=== PATIENT | female | born 1960 | race Caucasian/White ===

== ENCOUNTER 2021-04-29 17:05 | Emergency (ER) | payer MEDICAID ==
[~2021-04-29] VITALS: Ht 162.6 cm; Wt 98.4 kg
[2021-04-29 21:10] VITALS: BP 140/80
== END 2021-04-29 21:15 | disposition home or self-care (01) ==
LOC: ER 17:05
DX: S06.0X0A Concussion without loss of consciousness, initial encounter (principal); I10 Essential (primary) hypertension; Z88.2 Allergy status to sulfonamides; W01.0XXA Fall on same level from slipping, tripping and stumbling without subsequent striking against object, initial encounter; Y93.89 Activity, other specified; Y92.89 Other specified places as the place of occurrence of the external cause; Y99.8 Other external cause status
CPT/HCPCS: 70450

== ENCOUNTER 2024-03-06 18:36 | Inpatient (IN) | payer MEDICAID ==
[~2024-03-06] VITALS: Ht 162.6 cm; Wt 113.0 kg
[2024-03-06] MEDS: TAMSULOSIN HYDROCHLORIDE 0.4 MG CAP PO ONE (19:18)
[2024-03-06] MEDS: KETOROLAC TROMETH 30 MG/ML 1ML VIAL IV ONE (19:18)
[2024-03-06] MEDS: ONDANSETRON HCL 4 MG/2 ML VIAL IV ONE ×2 (19:18→22:59)
[2024-03-06 19:28] LABS: Basophils # (auto) 0 10 ^3/uL (0-0.2); Basophils % (auto) 0.5 % (0.0-2.0); Eosinophils # (auto) 0.1 10 ^3/uL (0-0.8); Eosinophils % (auto) 2.4 % (0.0-7.0); Hematocrit 39.2 % (36.0-46.0); Hemoglobin 13.2 g/dL (12.2-16.2); Lymphocytes # (auto) 2.2 10 ^3/uL (0.4-5.4); Mean Corpuscular Hgb Conc. 33.8 g/dL (32.0-36.0); Mean Corpuscular Volume 97.5 fL (80.0-100.0); Monocytes # (auto) 0.6 10 ^3/uL (0-1.3); Monocytes % (auto) 8.9 % (0.0-12.0); Neutrophils # (auto) 3.2 10 ^3/uL (1.6-8.6); Neutrophils % (auto) 52.2 % (37.0-80.0); Nucleated Red Blood Cells % 0.4 %; Platelet Count (auto) 334 10^3/uL (140-450); Red Blood Cells 4.02 10^6/uL (4.0-5.20); Red Cell Distribution Width 12.7 % (11.8-14.3); White Blood Cell 6.2 10^3/uL (4.4-10.8)
[2024-03-06 19:35] LABS: Alanine Aminotransferase 29 U/L (7-40); Albumin 4.5 g/dL (3.2-4.8); Alkaline Phosphatase 108 U/L (46-116); Anion Gap 8 (5-15); Aspartate Aminotransferase 46 U/L (13-40); BUN/Creatinine Ratio 8.4 (10.0-20.0); Blood Urea Nitrogen 9 mg/dL (9-23); Calcium 9.7 mg/dL (8.7-10.4); Carbon Dioxide 25 mmol/L (20-31); Chloride 92 mmol/L (98-107); Glucose 84 mg/dL (74-106); Potassium 3.8 mmol/L (3.5-5.1); Sodium 125 mmol/L (136-145)
[2024-03-06 19:36] LABS: Bilirubin, Total 0.3 mg/dL (0.2-1.0)
[2024-03-06] MEDS: SODIUM CHLORIDE 0.9% 1,000 ML IV ONE (19:43)
[2024-03-06] MEDS: MORPHINE SULFATE 4 MG/ML SYR/VIAL IV ONE (22:59)
[2024-03-06] MEDS ORDERED: MORPHINE SULFATE INJ 2 MG/ml SYRG IV PRN (23:15)
[2024-03-06] MEDS ORDERED: NITROGLYCERIN 0.4 MG SL TAB SL PRN (23:15)
[2024-03-06] MEDS ORDERED: DOCUSATE SOD 100 MG CAP PO PRN (23:15)
[2024-03-06] MEDS ORDERED: ONDANSETRON HCL 4 MG/2 ML VIAL IV PRN (23:15)
[2024-03-07] VITALS (11 sets, daily range): BP systolic 118–126; BP diastolic 40–50; PULSE 58–72; RESP 12–18; TEMP 97.9–98.4; O2SAT 93–100
[2024-03-07] MEDS: SODIUM CHLORIDE 0.9% 1,000 ML IV SCH (01:08)
[2024-03-07] MEDS: MORPHINE SULFATE INJ 2 MG/ml SYRG IV PRN (01:09)
[2024-03-07 03:50] LABS: Urine Bacteria None Seen /hpf (None Seen)
[2024-03-07 04:38] LABS: Basophils # (auto) 0 10 ^3/uL (0-0.2); Basophils % (auto) 0.2 % (0.0-2.0); Eosinophils # (auto) 0.1 10 ^3/uL (0-0.8); Eosinophils % (auto) 1.4 % (0.0-7.0); Hematocrit 34.2 % (36.0-46.0); Hemoglobin 12.2 g/dL (12.2-16.2); Lymphocytes # (auto) 1.7 10 ^3/uL (0.4-5.4); Lymphocytes % (auto) 21.1 % (10.0-50.0); Mean Corpuscular Hemoglobin 33.4 pg (28.0-32.0); Mean Corpuscular Hgb Conc. 35.7 g/dL (32.0-36.0); Mean Corpuscular Volume 93.6 fL (80.0-100.0); Monocytes # (auto) 0.7 10 ^3/uL (0-1.3); Monocytes % (auto) 8.9 % (0.0-12.0); Neutrophils # (auto) 5.4 10 ^3/uL (1.6-8.6); Neutrophils % (auto) 68.4 % (37.0-80.0); Platelet Count (auto) 253 10^3/uL (140-450); Red Blood Cells 3.66 10^6/uL (4.0-5.20); Red Cell Distribution Width 12.6 % (11.8-14.3); White Blood Cell 7.9 10^3/uL (4.4-10.8)
[2024-03-07 04:53] LABS: Urine Blood Negative /uL (Negative); Urine Clarity Turbid (Clear); Urine Color Yellow (Yellow); Urine Mucus FEW (None Seen); Urine Protein, UAD TRACE (Negative); Urine Specific Gravity 1.019 (1.001-1.035); Urine Urobilinogen Normal (Negative); Urine WBC 11 /hpf (0 - 5); Urine pH 5.5 (5.0-9.0)
[2024-03-07 04:55] LABS: Chloride 92 mmol/L (98-107); Potassium 3.4 mmol/L (3.5-5.1); Sodium 127 mmol/L (136-145)
[2024-03-07 04:56] LABS: Anion Gap 9 (5-15); Carbon Dioxide 26 mmol/L (20-31)
[2024-03-07 04:57] LABS: Calcium 9.2 mg/dL (8.7-10.4)
[2024-03-07 05:01] LABS: Glucose 96 mg/dL (74-106)
[2024-03-07 05:02] LABS: Blood Urea Nitrogen 11 mg/dL (9-23)
[2024-03-07] MEDS: POTASSIUM CHL 20 Meq TABLET PO ONE (06:44)
[2024-03-07] MEDS ORDERED: DULO20CA PO (07:04)
[2024-03-07] MEDS ORDERED: ATEN25TA PO (07:04)
[2024-03-07] MEDS ORDERED: UPAD15TA PO (07:04)
[2024-03-07] MEDS ORDERED: GABA-339 PO (07:04)
[2024-03-07] MEDS ORDERED: TRAZ-181 PO (07:04)
[2024-03-07] MEDS ORDERED: LURA80TA2 PO (07:04)
[2024-03-07] MEDS ORDERED: OXCA300T4 PO (07:04)
[2024-03-07] MEDS ORDERED: ATEN50TA PO (07:04)
[2024-03-07 09:35] LABS: Magnesium 1.5 mg/dL (1.6-2.6)
[2024-03-07 09:37] LABS: Phosphorus 3.3 mg/dL (2.4-5.1)
[2024-03-07] MEDS: TAMSULOSIN HYDROCHLORIDE 0.4 MG CAP PO SCH (11:31)
[2024-03-07] MEDS: SOD CHL 0.9%/ KCL 20MEQ 1,000 ML IV ONE (11:51)
[2024-03-07] MEDS: MAGNESIUM SULFATE 1GM/100ML 100 ML IV SCH (11:52)
[2024-03-07 13:37] LABS: Protein, Urine 24.8 mg/dL (1-14); Protein, Urine 26.3 mg/dL (1-14)
[2024-03-07 13:39] LABS: Creatinine, Urine 143.32 mg/dL (30.0-125.0)
[2024-03-07 13:40] LABS: Creatinine, Urine 146.78 mg/dL (30.0-125.0); Urine Protein/Creatinine Ratio 0.18
[2024-03-08] VITALS (13 sets, daily range): BP systolic 99–161; BP diastolic 53–77; PULSE 75–90; RESP 12–20; TEMP 97.3–98.5; O2SAT 94–99
[2024-03-08 07:25] LABS: INR 1.08 (0.9-1.15); Partial Thromboplastin Time 25.6 SEC (24.5-34.5); Prothrombin Time 11.4 sec (9.3-11.8)
[2024-03-08 08:03] LABS: Basophils # (auto) 0 10 ^3/uL (0-0.2); Basophils % (auto) 0.1 % (0.0-2.0); Eosinophils # (auto) 0 10 ^3/uL (0-0.8); Eosinophils % (auto) 0.5 % (0.0-7.0); Hematocrit 34.2 % (36.0-46.0); Hemoglobin 11.8 g/dL (12.2-16.2); Lymphocytes # (auto) 0.4 10 ^3/uL (0.4-5.4); Lymphocytes % (auto) 8.5 % (10.0-50.0); Mean Corpuscular Hemoglobin 32.8 pg (28.0-32.0); Mean Corpuscular Hgb Conc. 34.6 g/dL (32.0-36.0); Mean Corpuscular Volume 94.7 fL (80.0-100.0); Monocytes # (auto) 0.5 10 ^3/uL (0-1.3); Monocytes % (auto) 10.3 % (0.0-12.0); Neutrophils # (auto) 4.2 10 ^3/uL (1.6-8.6); Neutrophils % (auto) 80.6 % (37.0-80.0); Platelet Count (auto) 227 10^3/uL (140-450); Red Blood Cells 3.61 10^6/uL (4.0-5.20); Red Cell Distribution Width 12.7 % (11.8-14.3); White Blood Cell 5.2 10^3/uL (4.4-10.8)
[2024-03-08 08:09] LABS: Calcium 9.3 mg/dL (8.7-10.4); Chloride 103 mmol/L (98-107); Potassium 4.6 mmol/L (3.5-5.1); Sodium 136 mmol/L (136-145)
[2024-03-08 08:10] LABS: Anion Gap 5 (5-15); Carbon Dioxide 28 mmol/L (20-31)
[2024-03-08 08:15] LABS: BUN/Creatinine Ratio 6.9 (10.0-20.0); Blood Urea Nitrogen 7 mg/dL (9-23); Glucose 114 mg/dL (74-106)
[2024-03-08] MEDS: IODIXANOL 320MG/ML 100ML BTL IV ONE (12:23)
[2024-03-08] MEDS: LIDOCAINE 2%HCL (LOCAL ANESTH.) INJ 20ML MDV ONE (12:23)
[2024-03-08] MEDS: fentaNYL CITRATE 100 MCG/2 ML VL ONE (12:23)
[2024-03-08] MEDS: MIDAZOLAM HCL 2MG/2ML 2ml VIAL (1mg/ml) ONE (12:23)
[2024-03-08] MEDS: HYDROmorphone HCL 2 MG/ML VL/or syr ONE (13:48)
[2024-03-08] MEDS: HYDROcodone-ACET 5/325MG TAB PO PRN (20:22)
[2024-03-09] VITALS (8 sets, daily range): BP systolic 95–152; BP diastolic 50–74; PULSE 77–88; RESP 16–24; TEMP 97.9–98.6; O2SAT 96–100
[2024-03-09 07:07] LABS: Chloride 102 mmol/L (98-107); Sodium 137 mmol/L (136-145)
[2024-03-09 07:08] LABS: Anion Gap 6 (5-15); Calcium 9.6 mg/dL (8.7-10.4); Carbon Dioxide 29 mmol/L (20-31)
[2024-03-09 07:13] LABS: BUN/Creatinine Ratio 9.4 (10.0-20.0); Blood Urea Nitrogen 9 mg/dL (9-23); Glucose 119 mg/dL (74-106)
[2024-03-09 07:19] LABS: Basophils # (auto) 0 10 ^3/uL (0-0.2); Basophils % (auto) 0.2 % (0.0-2.0); Eosinophils # (auto) 0.1 10 ^3/uL (0-0.8); Hematocrit 33.9 % (36.0-46.0); Hemoglobin 11.9 g/dL (12.2-16.2); Lymphocytes # (auto) 0.5 10 ^3/uL (0.4-5.4); Lymphocytes % (auto) 8.5 % (10.0-50.0); Mean Corpuscular Hemoglobin 33.5 pg (28.0-32.0); Mean Corpuscular Hgb Conc. 35.2 g/dL (32.0-36.0); Mean Corpuscular Volume 95.3 fL (80.0-100.0); Monocytes # (auto) 0.7 10 ^3/uL (0-1.3); Monocytes % (auto) 11.3 % (0.0-12.0); Neutrophils # (auto) 4.8 10 ^3/uL (1.6-8.6); Platelet Count (auto) 233 10^3/uL (140-450); Red Blood Cells 3.56 10^6/uL (4.0-5.20); Red Cell Distribution Width 12.9 % (11.8-14.3)
[2024-03-09] MEDS: hydrALAZINE HCL 20 MG/ML VL IV PRN (10:01)
[2024-03-09] MEDS: OXcarbazepine 300 MG TAB PO SCH (13:06)
[2024-03-09] MEDS: GABAPENTIN 300 MG CAP PO SCH (13:07)
[2024-03-09] MEDS: ACETAMINOPHEN 325 MG TAB PO PRN (13:07)
[2024-03-09] MEDS ORDERED: NITR-52 PO (15:00)
[2024-03-09] MEDS ORDERED: TAMS-35 PO (15:00)
[2024-03-09] MEDS: LOSARTAN POTASSIUM 50 MG TAB PO ONE (17:55)
[2024-03-09] MEDS ORDERED: DULoxetine HCL 30 MG CAP PO SCH (22:00)
[2024-03-10 05:00] VITALS: BP 134/56; PULSE 86; RESP 19; TEMP 98.3; O2SAT 95
[2024-03-10 06:42] LABS: Anion Gap 6 (5-15); Carbon Dioxide 29 mmol/L (20-31); Chloride 101 mmol/L (98-107); Sodium 136 mmol/L (136-145)
[2024-03-10 06:43] LABS: Calcium 9.7 mg/dL (8.7-10.4)
[2024-03-10 06:48] LABS: BUN/Creatinine Ratio 8.4 (10.0-20.0); Blood Urea Nitrogen 10 mg/dL (9-23); Glucose 118 mg/dL (74-106)
[2024-03-10 06:50] LABS: Basophils # (auto) 0 10 ^3/uL (0-0.2); Basophils % (auto) 0.1 % (0.0-2.0); Eosinophils # (auto) 0.1 10 ^3/uL (0-0.8); Hematocrit 34.5 % (36.0-46.0); Lymphocytes # (auto) 0.6 10 ^3/uL (0.4-5.4); Lymphocytes % (auto) 8.7 % (10.0-50.0); Mean Corpuscular Hemoglobin 33.3 pg (28.0-32.0); Mean Corpuscular Hgb Conc. 34.7 g/dL (32.0-36.0); Mean Corpuscular Volume 95.9 fL (80.0-100.0); Monocytes # (auto) 0.6 10 ^3/uL (0-1.3); Monocytes % (auto) 9.3 % (0.0-12.0); Neutrophils # (auto) 5.4 10 ^3/uL (1.6-8.6); Neutrophils % (auto) 80.9 % (37.0-80.0); Platelet Count (auto) 245 10^3/uL (140-450); Red Blood Cells 3.59 10^6/uL (4.0-5.20); Red Cell Distribution Width 13.2 % (11.8-14.3); White Blood Cell 6.7 10^3/uL (4.4-10.8)
[2024-03-10 08:00] VITALS: PULSE 83
[2024-03-10 09:00] VITALS: BP 143/56; PULSE 86; RESP 15; TEMP 98.3; O2SAT 96
[2024-03-10] MEDS ORDERED: LOSARTAN POTASSIUM 50 MG TAB PO SCH (10:00)
[2024-03-10 13:00] VITALS: BP 142/66; PULSE 74; RESP 15; TEMP 97.9; O2SAT 99
== END 2024-03-10 16:00 | disposition home or self-care (01) | DRG 465 ==
LOC: ER 18:36 → OVERFLOW 23:21 → TELE 03-07 00:18 → TELE-EAST 03-07 05:32
PROVIDERS: ADMIT Nurse Practitioner Family; ATTEND Nurse Practitioner Family
PROC: 0T9030Z Drainage of Right Kidney with Drainage Device, Percutaneous Approach (ICD-10-PCS; principal; 2024-03-08)
DX: N13.2 Hydronephrosis with renal and ureteral calculous obstruction (principal); E87.1 Hypo-osmolality and hyponatremia; I10 Essential (primary) hypertension; E87.6 Hypokalemia; E83.42 Hypomagnesemia; F31.9 Bipolar disorder, unspecified; Z88.2 Allergy status to sulfonamides; Z82.49 Family history of ischemic heart disease and other diseases of the circulatory system
CPT/HCPCS: 36415; 50432; 74018; 74176; 74425; 76775; 76942; 80048; 80053; 81001; 82570; 83735; 83930; 83935; 84100; 84156; 84300; 84439; 84443; 84550; 85025; 85610; 85730; 86850; 86900; 86901; 96361; 96374; 96375; 96376; 97163; 99152; G0378; J1885; J2250; J2405; Q9967

== ENCOUNTER 2024-03-16 17:40 | Emergency (ER) | payer MEDICAID ==
[~2024-03-16 17:40] MED LIST: ATEN25TA PO; ATEN50TA PO; DULO20CA PO; GABA-339 PO; LURA80TA2 PO; NITR-52 PO; OXCA300T4 PO; TAMS-35 PO; TRAZ-181 PO; UPAD15TA PO
[2024-03-16 18:38] LABS: Basophils # (auto) 0 10 ^3/uL (0-0.2); Basophils % (auto) 0.5 % (0.0-2.0); Eosinophils # (auto) 0.1 10 ^3/uL (0-0.8); Eosinophils % (auto) 3.1 % (0.0-7.0); Hematocrit 37.2 % (36.0-46.0); Hemoglobin 12.9 g/dL (12.2-16.2); Lymphocytes # (auto) 1.7 10 ^3/uL (0.4-5.4); Lymphocytes % (auto) 38.5 % (10.0-50.0); Mean Corpuscular Hemoglobin 32.8 pg (28.0-32.0); Mean Corpuscular Hgb Conc. 34.8 g/dL (32.0-36.0); Mean Corpuscular Volume 94.3 fL (80.0-100.0); Monocytes # (auto) 0.5 10 ^3/uL (0-1.3); Monocytes % (auto) 11.7 % (0.0-12.0); Neutrophils % (auto) 46.2 % (37.0-80.0); Nucleated Red Blood Cells % 0.1 %; Platelet Count (auto) 260 10^3/uL (140-450); Red Blood Cells 3.94 10^6/uL (4.0-5.20); Red Cell Distribution Width 12.8 % (11.8-14.3); White Blood Cell 4.4 10^3/uL (4.4-10.8)
[2024-03-16 18:46] LABS: Chloride 102 mmol/L (98-107); Potassium 3.7 mmol/L (3.5-5.1); Sodium 135 mmol/L (136-145)
[2024-03-16 18:47] LABS: Anion Gap 5 (5-15); Calcium 9.5 mg/dL (8.7-10.4); Carbon Dioxide 28 mmol/L (20-31)
[2024-03-16 18:52] LABS: BUN/Creatinine Ratio 7.6 (10.0-20.0); Blood Urea Nitrogen 8 mg/dL (9-23); Glucose 103 mg/dL (74-106)
[2024-03-16 20:15] VITALS: PULSE 62; RESP 16; TEMP 98.5; O2SAT 100
[2024-03-16] MEDS: ONDANSETRON HCL 4 MG/2 ML VIAL IV ONE (20:44)
[2024-03-16] MEDS: MORPHINE SULFATE 4 MG/ML SYR/VIAL IV ONE (20:44)
[2024-03-16] MEDS: SODIUM CHLORIDE 0.9% 1,000 ML IV ONE (20:44)
[2024-03-16] MEDS: IOHEXOL 300 MG/ML 100ML BOTTLE IJ ONE (21:13)
[2024-03-16 22:00] VITALS: BP 145/47; PULSE 73; RESP 12; O2SAT 100
[2024-03-16] MEDS: HYDROcodone-ACET 10/325MG TAB PO ONE (22:43)
== END 2024-03-16 22:53 | disposition home or self-care (01) ==
LOC: ER 17:40
DX: R10.9 Unspecified abdominal pain (principal); I10 Essential (primary) hypertension; Z93.6 Other artificial openings of urinary tract status; Z79.899 Other long term (current) drug therapy
CPT/HCPCS: 36415; 74177; 80048; 85025; 96361; 96374; 96375; 99285; J2270; J2405; J7030; Q9967

== ENCOUNTER 2024-03-17 08:27 | Inpatient (IN) | payer MEDICAID ==
[~2024-03-17] VITALS: Ht 161.3 cm; Wt 112.0 kg
[2024-03-17 09:56] LABS: Basophils # (auto) 0 10 ^3/uL (0-0.2); Basophils % (auto) 0.5 % (0.0-2.0); Eosinophils # (auto) 0.1 10 ^3/uL (0-0.8); Eosinophils % (auto) 1.8 % (0.0-7.0); Hematocrit 37.5 % (36.0-46.0); Hemoglobin 12.9 g/dL (12.2-16.2); Lymphocytes # (auto) 0.7 10 ^3/uL (0.4-5.4); Lymphocytes % (auto) 9.5 % (10.0-50.0); Mean Corpuscular Hemoglobin 32.8 pg (28.0-32.0); Mean Corpuscular Hgb Conc. 34.4 g/dL (32.0-36.0); Mean Corpuscular Volume 95.3 fL (80.0-100.0); Monocytes # (auto) 0.6 10 ^3/uL (0-1.3); Monocytes % (auto) 8.2 % (0.0-12.0); Neutrophils # (auto) 5.5 10 ^3/uL (1.6-8.6); Platelet Count (auto) 263 10^3/uL (140-450); Red Blood Cells 3.93 10^6/uL (4.0-5.20); Red Cell Distribution Width 12.8 % (11.8-14.3); White Blood Cell 6.9 10^3/uL (4.4-10.8)
[2024-03-17 09:57] LABS: Urine Bacteria None Seen /hpf (None Seen)
[2024-03-17 10:00] LABS: Chloride 103 mmol/L (98-107); Sodium 139 mmol/L (136-145)
[2024-03-17 10:01] LABS: Anion Gap 5 (5-15); Calcium 9.6 mg/dL (8.7-10.4); Carbon Dioxide 31 mmol/L (20-31)
[2024-03-17 10:05] LABS: Urine Blood Negative /uL (Negative); Urine Clarity Clear (Clear); Urine Color Light-Yellow (Yellow); Urine Protein, UAD Negative (Negative); Urine Specific Gravity 1.016 (1.001-1.035); Urine Urobilinogen Normal (Negative); Urine WBC 2 /hpf (0 - 5)
[2024-03-17 10:06] LABS: BUN/Creatinine Ratio 8.3 (10.0-20.0); Blood Urea Nitrogen 9 mg/dL (9-23); Glucose 99 mg/dL (74-106)
[2024-03-17] MEDS: TAMSULOSIN HYDROCHLORIDE 0.4 MG CAP PO ONE (10:15)
[2024-03-17] MEDS: FUROSEMIDE 40 MG/4 ML VIAL IV ONE (10:15)
[2024-03-17] MEDS: KETOROLAC TROMETH 30 MG/ML 1ML VIAL IV ONE (11:49)
[2024-03-17] MEDS: HYDROmorphone HCL 2 MG/ML VL/or syr IV ONE (13:31)
[2024-03-17] MEDS ORDERED: KETOROLAC TROMETH 30 MG/ML 1ML VIAL IV PRN (16:30)
[2024-03-17] MEDS ORDERED: ONDANSETRON HCL 4 MG/2 ML VIAL IV PRN (16:30)
[2024-03-17] MEDS ORDERED: fentaNYL CITRATE 100 MCG/2 ML VL ONE (16:39)
[2024-03-17] MEDS: SUCCINYLCHOLINE CHLORIDE 20 MG/ML 10ML VIAL IV ONE (16:40)
[2024-03-17] MEDS ORDERED: PROPOFOL 10 MG/ML 20 ML IV ONE (16:41)
[2024-03-17] MEDS ORDERED: MORPHINE SULFATE INJ 2 MG/ml SYRG IV PRN (16:45)
[2024-03-17] MEDS ORDERED: NITROGLYCERIN 0.4 MG SL TAB SL PRN (16:45)
[2024-03-17] MEDS ORDERED: ONDANSETRON HCL 4 MG/2 ML VIAL ONE (17:03)
[2024-03-17] MEDS ORDERED: DexAMETHasone SOD PHOS 10MG/1ML VIAL INJ ONE (17:03)
[2024-03-17] MEDS: IOHEXOL 300 MG/ML 100ML BOTTLE IJ ONE ×2 (17:32→17:41)
[2024-03-17 17:53] VITALS: PULSE 89; RESP 13; O2SAT 99
[2024-03-17] MEDS: ONDANSETRON HCL 4 MG/2 ML VIAL IV ONE (18:15)
[2024-03-17] MEDS ORDERED: MEPERIDINE HCL (25 MG/ML) 1ML VIAL IV PRN (18:15)
[2024-03-17 20:00] VITALS: PULSE 67
[2024-03-17] MEDS: SODIUM CHLORIDE 0.9% 1,000 ML IV SCH (20:45)
[2024-03-17] MEDS: cefTRIAXone 1GM/50ML D5W 50 ML IV ONE (20:45)
[2024-03-17 21:00] VITALS: BP 146/64; PULSE 66; RESP 16; TEMP 98; O2SAT 96
[2024-03-17] MEDS: FAMOTIDINE 20 MG TAB PO SCH (21:03)
[2024-03-18 01:00] VITALS: BP 156/51; PULSE 70; RESP 16; TEMP 98; O2SAT 94
[2024-03-18 05:00] VITALS: BP 145/54; PULSE 73; RESP 16; TEMP 98.4; O2SAT 93
[2024-03-18 07:55] LABS: Basophils # (auto) 0 10 ^3/uL (0-0.2); Eosinophils # (auto) 0 10 ^3/uL (0-0.8); Hematocrit 34.2 % (36.0-46.0); Hemoglobin 12.1 g/dL (12.2-16.2); Lymphocytes # (auto) 0.5 10 ^3/uL (0.4-5.4); Lymphocytes % (auto) 6.7 % (10.0-50.0); Mean Corpuscular Hemoglobin 33.8 pg (28.0-32.0); Mean Corpuscular Hgb Conc. 35.4 g/dL (32.0-36.0); Mean Corpuscular Volume 95.3 fL (80.0-100.0); Monocytes # (auto) 0.4 10 ^3/uL (0-1.3); Monocytes % (auto) 4.7 % (0.0-12.0); Neutrophils # (auto) 6.9 10 ^3/uL (1.6-8.6); Neutrophils % (auto) 88.6 % (37.0-80.0); Platelet Count (auto) 246 10^3/uL (140-450); Red Blood Cells 3.59 10^6/uL (4.0-5.20); Red Cell Distribution Width 12.7 % (11.8-14.3); White Blood Cell 7.8 10^3/uL (4.4-10.8)
[2024-03-18 08:06] LABS: Calcium 9.8 mg/dL (8.7-10.4); Chloride 104 mmol/L (98-107); Potassium 3.9 mmol/L (3.5-5.1); Sodium 137 mmol/L (136-145)
[2024-03-18 08:07] LABS: Anion Gap 8 (5-15); Carbon Dioxide 25 mmol/L (20-31)
[2024-03-18 08:12] LABS: Blood Urea Nitrogen 12 mg/dL (9-23); Glucose 118 mg/dL (74-106)
[2024-03-18 08:30] VITALS: PULSE 73; PULSE 80; RESP 18; O2SAT 96
[2024-03-18 09:00] VITALS: BP 134/54; PULSE 80; RESP 18; TEMP 98; O2SAT 96
[2024-03-18] MEDS: cefTRIAXone 1GM/50ML D5W 50 ML IV SCH (09:02)
[2024-03-18 13:00] VITALS: BP 130/54; PULSE 86; RESP 20; TEMP 98.7; O2SAT 98
== END 2024-03-18 16:50 | disposition home or self-care (01) | DRG 446 ==
LOC: ER 08:27 → TELE 16:45 → UNDOADMIN 16:46 → TELE-CENTR 19:11
PROVIDERS: ADMIT Hospitalist; ATTEND Hospitalist
PROC: 0TC68ZZ Extirpation of Matter from Right Ureter, Via Natural or Artificial Opening Endoscopic (ICD-10-PCS; 2024-03-17)
PROC: 0TP5X0Z Removal of Drainage Device from Kidney, External Approach (ICD-10-PCS; 2024-03-17)
PROC: 0T768DZ Dilation of Right Ureter with Intraluminal Device, Via Natural or Artificial Opening Endoscopic (ICD-10-PCS; principal; 2024-03-17 16:38)
DX: N13.2 Hydronephrosis with renal and ureteral calculous obstruction (principal); F31.9 Bipolar disorder, unspecified; I10 Essential (primary) hypertension; Z88.2 Allergy status to sulfonamides; Z82.49 Family history of ischemic heart disease and other diseases of the circulatory system; Z79.899 Other long term (current) drug therapy
CPT/HCPCS: 36415; 74018; 76000; 80048; 81001; 82360; 85025; 87081; 96374; G0378; J0330; J1100; J1885; J2405; J2704

== ENCOUNTER 2024-12-09 13:10 | Emergency (ER) | payer MEDICAID ==
[~2024-12-09] VITALS: Ht 160 cm; Wt 104.5 kg
[~2024-12-09 13:10] MED LIST changes: -TAMS-35 PO
--- NOTE | 2024-12-09 13:19 | ED.PDOC ---
Musculoskeletal HPI Comments HPI: 64 year old female presents to the emergency department via EMS with a chief compliant of LT knee pain s/p hyperextension onset today (12/09/24). Per EMS, patient was watering plants, slipped with water, knee bent backwards. She was given Fentanyl 100 mcg in route to ED. Patient had bilateral knee replacement 7 years ago, by Dr. Fabian. Patient is usually to ambulate with cane, was not using cane today. No other symptoms or modifying factors present at this time. Initial Vitals BP: 140/80 HR: 82 RR: 20 O2 Sat: 95% Temp: 99 F Past Medical history: HTN, Arthritis, cancer, bipolar disorder, fibromyalgia, HLD, asthma Past Surgical history: bilateral knee replacement, kidney stones removal, cholecystectomy Medications: Albuterol, Gabapentin, Atenolol Social History: Denies smoking, ETOH, and drug use. Allergies: NKDA HPI: Poor Historian. REVIEW OF SYSTEMS: CONSTITUTIONAL: Denies acute: fever, diaphoresis, chills, generalized weakness. HEAD: Denies acute: headache, photophobia Eyes: Denies acute: Double vision, vision loss, eye pain, eye discharge. EARS: Denies acute: tinnitus, hearing loss, ear discharge, ear pain, THROAT: Denies acute: sore throat, swelling, difficulty swallowing , pain with swallowing, change in voice. NECK: Denies acute: neck pain, neck swelling, stiff neck. HEART: Denies acute : chest pain, palpitations, LUNGS: Denies acute: SOB, wheezing, cough, hemoptysis ABDOMEN: Denies acute: abdominal pain, Nausea, Vomiting, diarrhea, melena , hematemesis, hematochezia SKIN: Denies acute: rash, redness, lesions, itchiness. EXTREMITIES: Denies acute: calf pain, numbness, tingling, weakness, Denies acute: Low back pain. Neuro: Denies acute: focal neurological deficit, motor or sensory focal neurological deficit, tremors, seizure like activity, confusion, dizziness, change in mental status, loss of bowel or bladder function, cauda equina like symptoms. : Denies acute: dysuria, hematuria, flank pain, increase in urinary frequency. PSYCH: Denies acute: hallucination, suicidal ideation, homicidal ideation. FEMALE: Denies acute: abnormal vaginal bleeding, foul odor, unusual discharge. PHYSICAL EXAM: General: -----[id number]---acute distress, awake and alert. Head: normocephalic, atraumatic. Neck: supple, trachea is midline, no swelling. Throat: Normal phonation. Eyes:, no erythema, no purulent discharge, no proptosis, no icterus. Heart: regular rate, regular rhythm, no significant murmur appreciated. Lungs: no apparent respiratory distress, Able to speak in full sentences. No wheezing, no rhonchi, no crackles. No stridors Clear to auscultation bilaterally. Abdomen: non tender to palpation, non distended, soft, no guarding, no rebound, + bowel sounds. Morbidly obese Neuro: Awake, Alert, oriented to name, self, situation, follows commands GCS=15. Speech is normal. Skin: no petechia, no purpura, no cyanosis, non-pale, not jaundice. Lower extremities: --no - Pitting edema no calf TTP. Evaluation of the affected extremity left lower extremity.: Patient is neurovascularly intact. Pedal pulses palpable. Feet is warm. Able to wiggle her toes. Unable to move her left knee due to pain. Makes eye contact. Face: no apparent facial droop. Pedal pulses are palpable. ED COURSE: At this time 3:50 p.m. The case was discussed with the ER doctor at [facility] team for higher level of care (HPI, physical exam, labs and diagnostic tests that were available at the time of disposition, ED course, treatment plan) on the phone. They accepted the p atient to their service Dr. BRIDGES. DISCLAIMER: This medical document was created using an electronic medical record system with voice recognition software and computerized dictation system. Although this document has been carefully reviewed, there might still be some phonetic and typographical errors. Occasional wrong-word or "sound-alike" substitutions may have occurred due to the inherent limitations of voice recognition software. These areas are purely typographical due to imperfections of the software programs and do not reflect any compromise in the patient's medical care. Please read the chart carefully and recognize, using context, where these substitutions have occurred. Time Seen by MD: 13:10 Primary Care Provider: PEDRO Nicholas Notes: Medications, Allergies Allergies: Coded Allergies: Sulfa Antibiotics (Verified Allergy, Unknown, 03/17/24) Home Meds Active Scripts Nitrofurantoin (Nitrofurantoin) 100 Mg Cap, 1 CAP PO BID, #10 CAP Prov:DANIAL WANG 03/09/24 Reported Medications Gabapentin (Gabapentin) 600 Mg Tab, 600 MG PO TID for 30 Days, MG 03/07/24 Upadacitinib (Rinvoq) 15 Mg Tab, 40 MG PO QAM, TAB 03/07/24 Trazodone HCl (Trazodone Hydrochloride) 50 Mg Tab, 50 MG PO QHSP, TAB 03/07/24 Lurasidone Hcl (LATUDA) 80 Mg Tab, 1 TAB PO QPM, #30 TAB 2 Refills 03/07/24 Duloxetine Hcl (Cymbalta) 20 Mg Cap, 40 MG PO DAILY, CAP 03/07/24 Oxcarbazepine (Trileptal) 300 Mg Tab, 300 MG PO BID for 30 Days, MG 03/07/24 Atenolol (Atenolol) 25 Mg Tab, 25 MG PO QHSP, TAB 03/07/24 Atenolol (Atenolol) 50 Mg Tab, 50 MG PO QAM for 30 Days, MG 03/07/24 Information Source: Patient, Emergency Med Personnel Mode of Arrival: EMS Location: Left Extremity Location: Knee Timing: Hours Prehospital treatment: Pain Meds (Fentanyl 100 mcg ) Severity: Moderate Bear Weight: Limited Pain: Moderate Mechanism: Hyperextension Circumstances: Tripped Onset of Symptoms: After Trauma Symptoms: Swelling, Pain DVT Risk Factors: NONE History of: Knee Operation Associated signs and symptoms: Swelling, Knee pain Past Medical History PAST MEDICAL HISTORY: Arthritis, Cancer, High Lipids, HTN Past Medical History (Other): bipolar disorder, fibromyalgia Surgical History: Cholecystectomy Surgical History (Other): bilateral knee replacement VISUALIZER History: Denies all VISUALIZER Hx Family History Family History: Reviewed,noncontributory to illness Social History Smoker: Non-Smoker Alcohol: Denies ETOH Use Drugs: Denies Drug Use Lives In: Home Was a procedure done? Was a procedure done?: No X-Ray, Labs, Meds, VS Vital Signs Date Time Temp Pulse Resp B/P (MAP) Pulse Ox O2 Delivery O2 Flow Rate FiO2 12/09/24 15:27 81 14 137/77 12/09/24 14:26 144/155 12/09/24 13:15 99.0 82 20 140/80 (100) 95 99.0 Lab Test 12/09/24 14:11 Range/Units White Blood Count 11.0 H 4.4-10.8 10^3/uL Red Blood Count 4.52 4.0-5.20 10^6/uL Hemoglobin 14.5 12.2-16.2 g/dL Hematocrit 41.5 36.0-46.0 % Mean Corpuscular Volume 91.8 80.0-100.0 fL Mean Corpuscular Hemoglobin 32.1 H 28.0-32.0 pg Mean Corpuscular Hemoglobin Concent 35.0 32.0-36.0 g/dL Red Cell Distribution Width 12.1 11.8-14.3 % Platelet Count 320 140-450 10^3/uL Mean Platelet Volume 8.0 6.9-10.8 fL Neutrophils (%) (Auto) 82.7 H 37.0-80.0 % Lymphocytes (%) (Auto) 7.7 L 10.0-50.0 % Monocytes (%) (Auto) 8.9 0.0-12.0 % Eosinophils (%) (Auto) 0.3 0.0-7.0 % Basophils (%) (Auto) 0.4 0.0-2.0 % Neutrophils # (Auto) 9.1 H 1.6-8.6 10 ^3/uL Lymphocytes # (Auto) 0.8 0.4-5.4 10 ^3/uL Monocytes # (Auto) 1.0 0-1.3 10 ^3/uL Eosinophils # (Auto) 0 0-0.8 10 ^3/uL Basophils # (Auto) 0 0-0.2 10 ^3/uL Nucleated Red Blood Cells 0.0 % Sodium Level 129 L 136-145 mmol/L Potassium Level 3.4 L 3.5-5.1 mmol/L Chloride Level 89 L 98-107 mmol/L Carbon Dioxide Level 30 20-31 mmol/L Anion Gap 10 5-15 Blood Urea Nitrogen 18 9-23 mg/dL Creatinine 1.49 H 0.550-1.02 mg/dL Glomerular Filtration Rate Calc 39 >90 mL/min BUN/Creatinine Ratio 12.1 10.0-20.0 Serum Glucose 123 H 74-106 mg/dL Calcium Level 10.7 H 8.7-10.4 mg/dL Current Medications Medications (Trade) Dose Ordered Sig/Taylor Route Start Time Stop Time Status Last Admin Fentanyl Citrate 100 mcg ONCE ONCE IV 12/09/24 14:00 12/09/24 14:01 DC 12/09/24 14:26 Sodium Chloride 1,000 ml @ 1,000 mls/hr Q1H ONCE IV 12/09/24 14:45 12/09/24 15:44 DC 12/09/24 15:26 Hydromorphone HCl (Dilaudid Injection) 0.5 mg ONCE ONCE IV 12/09/24 15:30 12/09/24 15:31 DC 12/09/24 15:27 [place] [address] Ph: [phone] DIAGNOSTIC IMAGING Diagnostic Imaging Report : [id number] Signed PATIENT: JAMIL HE ACCT: [id number] UNIT: [id number] : 1960 LOC: ER ROOM / BED: / AGE / SEX: 64 / F ADM STATUS: REG ER SERVICE [id number] ORDERING PHYSICIAN: ESTRELLA BHATTI DO PROCEDURE(s): LKNE3 - L KNEE 3V XRAY REASON: hyperextension injury ORDER NUMBER(s): [id number], ACCESSION NUMBER(s): [id number] CLINICAL INDICATION: hyperextension injury TECHNIQUE: XY L KNEE 3V XRAY Comparison: None FINDINGS/IMPRESSION: : Left knee arthroplasty. There is posterior dislocation of the proximal femur with respect to the tibia. ATED BY: REMIGIO TAYLOR MD DICTATED DATE/TIME: 12/09/241357 SIGNED BY: REMIGIO TAYLOR MD SIGNED DATE/TIME: 12/09/241357 CC: [address] [address] Ph: [phone] DIAGNOSTIC IMAGING Diagnostic Imaging Report : [id number] Signed PATIENT: JAMIL HE ACCT: [id number] UNIT: [id number] : 1960 LOC: ER ROOM / BED: / AGE / SEX: 64 / F ADM STATUS: REG ER SERVICE 1415 ORDERING PHYSICIAN: ESTRELLA BHATTI DO PROCEDURE(s): CTALE - CT ANGIO LOWER EXTREMITY REASON: knee post dislocation ORDER NUMBER(s): [id number], ACCESSION NUMBER(s): [id number] EXAM: CT CT ANGIO LOWER EXTREMITY Reason for study/Clinical History: knee post dislocation COMPARISON STUDY: None CTA left LOWER EXTREMITY RUNOFF WITH CONTRAST DATED 12/09/2024 02:31 PM TECHNIQUE: 3D angiographic acquisition of lower extremities was obtained during the intravenous administration of 90 cc omni 350 without immediate adverse effect. 3D post processing, including maximum intensity projection, was performed on an independent workstation. Radiation dose : Radiation Dose Information: CT Dose: CTDI volume is 23.68 mGy. Dose-length product is 424.65 mGy*cm FINDINGS: Vascular: Evaluation is limited by metallic artifact related to left knee arthroplasty. Visualized distal left superficial femoral artery and proximal popliteal arteries are patent. Large portions of the popliteal artery obscured. 3-vessel runoff to the visualized lower leg. Musculoskeletal: Large suprapatellar effusion. Femur is dislocated posteriorly. No definite fracture identified. IMPRESSION: 1. Limited evaluation of the popliteal artery due to metallic artifact related to the left total knee arthroplasty. No definite vascular injury is identified. Posterior dislocation of the femur. Large suprapatellar effusion. Clinical correlation and continued follow-up is recommended. END IMPRESSION: HS:Y ATED BY: CHANELLE ROSARIO MD DICTATED DATE/TIME: 12/09/24 1506 SIGNED BY: CHANELLE ROSARIO MD SIGNED DATE/TIME: 12/09/24 1506 CC: Time of 1ST Reevaluation: 13:40 Reevaluation 1ST: Unchanged Time of 2ND Reevaluation: 14:22 (The case was discussed with the orthopedic on- call team (HPI, physical exam, labs and diagnostic tests that were available at the time of disposition, ED course, treatment plan) on the phone. They reviewed the images. They recommend CTA angiogram of the left lower extremity to rule out any arterial injury. If there is no injury the patient can be admitted to the facility here for surgical repair however if this vessel injury patient needs to be transferred out. Per Dr. Frederick. ) Reevaluation 2ND: Unchanged Time of 3RD Reevaluation: 15:31 (CTA angiogram of the extremity was obtained. No apparent active bleeding. I discussed the case with the orthopedic doctor again and transmitted the report to him to review. He called back and still prefers that the patient be transferred out because we do not have any vascular surgery backup should we need it during the operative reduction of the knee dislocation. Transfer process initiated at this time.) Patient Education/Counseling: Diagnosis, Treatment Family Education/Counseling: No Family Present Departure 1 Departure Time of Disposition: 14:21 Impression: Primary Impression: Dislocation of knee, posterior, left, closed Discharged With: Self Critical Care Note Critical Care Time?: No I personally scribed for ESTRELLA BHATTI DO ([email or web address]) on 12/09/24 at 13:19. Electronically submitted by Blanca Hernandez ([email or web address]). I personally scribed for ESTRELLA BHATTI DO ([email or web address]) on 12/09/24 at 13:36. Electronically submitted by Blanca Hernandez ([email or web address]). I personally scribed for ESTRELLA BHATTI DO ([email or web address]) on 12/09/24 at 14:13. Electronically submitted by Blanca Hernandez ([email or web address]). I personally scribed for ESTRELLA BHATTI DO ([email or web address]) on 12/09/24 at 15:27. Electronically submitted by Blanca Hernandez ([email or web address]). ESTRELLA BHATTI DO Dec 09, 2024 13:19
--- NOTE | 2024-12-09 14:00 | DVH ---
CLINICAL INDICATION: hyperextension injury TECHNIQUE: XY L KNEE 3V XRAY Comparison: None FINDINGS/IMPRESSION: : Left knee arthroplasty. There is posterior dislocation of the proximal femur with respect to the tibia.
[2024-12-09 14:24] LABS: Hematocrit 41.5 % (36.0-46.0); Hemoglobin 14.5 g/dL (12.2-16.2); Mean Corpuscular Hemoglobin 32.1 pg (28.0-32.0); Mean Corpuscular Volume 91.8 fL (80.0-100.0); Nucleated Red Blood Cells % 0.0 %
[2024-12-09] MEDS: fentaNYL CITRATE 100 MCG/2 ML VL IV ONE (14:26)
[2024-12-09 14:30] LABS: Anion Gap 10 (5-15); Carbon Dioxide 30 mmol/L (20-31); Chloride 89 mmol/L (98-107); Potassium 3.4 mmol/L (3.5-5.1); Sodium 129 mmol/L (136-145)
[2024-12-09 14:31] LABS: Calcium 10.7 mg/dL (8.7-10.4)
[2024-12-09 14:35] LABS: BUN/Creatinine Ratio 12.1 (10.0-20.0); Blood Urea Nitrogen 18 mg/dL (9-23)
[2024-12-09 14:36] LABS: Glucose 123 mg/dL (74-106)
[2024-12-09] MEDS: IOHEXOL 350 MG/ML 100ML IJ ONE (15:00)
--- NOTE | 2024-12-09 15:07 | DVH ---
EXAM: CT CT ANGIO LOWER EXTREMITY Reason for study/Clinical History: knee post dislocation COMPARISON STUDY: None CTA left LOWER EXTREMITY RUNOFF WITH CONTRAST DATED 12/09/2024 02:31 PM TECHNIQUE: 3D angiographic acquisition of lower extremities was obtained during the intravenous admi nistration of 90 cc omni 350 without immediate adverse effect. 3D post processing, including maximum intensity projection, was performed on an independent workstation. Radiation dose : Radiation Dose Information: CT Dose: CTDI volume is 23.68 mGy. Dose-length product is 424.65 mGy*cm FINDINGS: Vascular: Evaluation is limited by metallic artifact related to left knee arthroplasty. Visualized distal left superficial femoral artery and proximal popliteal arteries are patent. Large portions of the poplitea l artery obscured. 3-vessel runoff to the visualized lower leg. Musculoskeletal: Large suprapatellar effusion. Femur is dislocated posteriorly. No definite fracture identified. IMPRESSION: 1. Limited evaluation of the popliteal artery due to metallic artifact related to the left total knee arthroplasty. No definite vascular injury is identified. Posterior dislocation of the femur. Large s uprapatellar effusion. Clinical correlation and continued follow-up is recommended. END IMPRESSION: HS:Y
[2024-12-09] MEDS: SODIUM CHLORIDE 0.9% 1,000 ML IV ONE (15:26)
[2024-12-09] MEDS: HYDROmorphone HCL 2 MG/ML VL/or syr IV ONE ×2 (15:27→17:31)
[2024-12-09 16:53] VITALS: PULSE 74; RESP 16; O2SAT 97
[2024-12-09] MEDS: ONDANSETRON HCL 4 MG/2 ML VIAL IV ONE (17:31)
[2024-12-09 19:51] VITALS: BP 156/84; PULSE 75; RESP 16; TEMP 97.8; O2SAT 98
[2024-12-09 21:41] LABS: Urine Protein, UAD TRACE (Negative)
== END 2024-12-09 20:14 | disposition short-term general hospital (02) ==
LOC: EDUNIT# 13:10 → EDBD 13:10 → ER 13:10
DX: S83.105A Unspecified dislocation of left knee, initial encounter (principal); M19.90 Unspecified osteoarthritis, unspecified site; I10 Essential (primary) hypertension; F31.9 Bipolar disorder, unspecified; E78.5 Hyperlipidemia, unspecified; J45.909 Unspecified asthma, uncomplicated; M79.7 Fibromyalgia; Z79.899 Other long term (current) drug therapy; Z88.2 Allergy status to sulfonamides; Z90.49 Acquired absence of other specified parts of digestive tract; Z96.653 Presence of artificial knee joint, bilateral; W01.0XXA Fall on same level from slipping, tripping and stumbling without subsequent striking against object, initial encounter; Y93.89 Activity, other specified; Y92.89 Other specified places as the place of occurrence of the external cause; Y99.8 Other external cause status
CPT/HCPCS: 36415; 73562; 73706; 80048; 81001; 85025; 87086; 96361; 96374; 96375; 96376; 99285; J1171; J2405; J3010; J7030; Q9967

== ENCOUNTER 2025-05-10 09:11 | Outpatient (CLI) | payer MEDICAID ==
--- NOTE | 2025-05-11 14:22 | DVH ---
PROCEDURE: [facility] BONE 3 PHASE Exam Date: 05/10/2025 09:46 AM CLINICAL HISTORY: PAIN IN LEFT KNEE Comparison Study: None Nuclear Medicine Three-Phase Bone Scan TECHNIQUE: Following the intravenous administration of 25.2 millicuries of technetium 99m MDP dynamic blood flow images and static and blood pool images were obtained. Delayed planar images were obtained at 3 hours. FINDINGS: No abnormalities are present on flow and blood pool phase images. Bilateral knee arthroplasties are present. Mild asymmetric increased periprostatic activity is present on the left on delayed phase images. IMPRESSION: Mild asymmetric increased periprostatic activity on the left on delayed phase images. This is nonspecific and may be related to arthroplasty loosening or infection. Clinical correlation advised.
== END 2025-05-10 17:00 | disposition home or self-care (01) ==
LOC: XYW 09:11
PROVIDERS: ATTEND Internal Medicine Rheumatology
DX: M25.562 Pain in left knee (principal); Z96.653 Presence of artificial knee joint, bilateral
CPT/HCPCS: 78315; A9503